=== PATIENT | male | born 1985 | race Hispanic/Latino ===

== ENCOUNTER 2020-10-13 16:01 | Emergency (ER) | payer SELFPAY ==
[2020-10-13] MEDS ORDERED: Lidocaine 1% (PF) 30 ML VIAL ONE (17:06)
== END 2020-10-13 17:39 | disposition home or self-care (01) ==
LOC: ERS 16:01
DX: S61.210A Laceration without foreign body of right index finger without damage to nail, initial encounter (principal); W26.0XXA Contact with knife, initial encounter
CPT/HCPCS: 12002; J2001